=== PATIENT | female | born 1940 | race Caucasian/White ===

== ENCOUNTER → 2017-05-27 | Outpatient (REF) | payer MEDICARE, BC ==
[~2017-05-27] MED LIST: ADVA230A PO; ASPI81TA85 PO; BISO5TAB5 PO; CETI10TA PO; FLUO40CA PO; FLUTISP; FOLI1TAB4 PO; GABA-282 PO; ISOS30TA4 PO; LEVO112T25 PO; METF750T PO; PANT40TA2 PO; PRAL1INJ SUBQ; RAMI10CA PO; RANE1000 PO; SPIR1CAP PO; TYLE650T35 PO; VITA500055 PO
== END ==
LOC: M LAB REF 16:54
PROVIDERS: ATTEND Obstetrics & Gynecology
DX: R15.9 Full incontinence of feces (principal); Z79.899 Other long term (current) drug therapy

== ENCOUNTER 2017-07-16 06:26 | Day surgery (SDC) | payer MEDICARE, BC ==
[2017-07-16] MEDS ORDERED: LR 1,000 ML IV (06:45)
[2017-07-16] MEDS ORDERED: MIDAZOLAM INJ 2 MG/2 ML VIAL (J2250) As Ordered (07:08)
[2017-07-16] MEDS ORDERED: PROPOFOL 200 MG/20 ML VIAL As Ordered ×2 (07:08→08:39)
[2017-07-16] MEDS ORDERED: fentaNYL 100 MCG/2 ML INJECTION (J3010) As Ordered (07:08)
[2017-07-16] MEDS ORDERED: LIDOCAINE 2% INJ 100 MG/5 ML SDV (FOR ANES.) As Ordered (07:10)
[2017-07-16 07:39] LABS: BEDSIDE GLUCOSE 109 MG/DL (83-110)
[2017-07-16] MEDS ORDERED: ONDANSETRON 4MG/2ML VIAL (J2405) As Ordered (07:42)
[2017-07-16] MEDS: LIDOCAINE 1% SDV INJ 30 ML VIAL As Ordered (08:12)
[2017-07-16] MEDS: ceFAZolin 1GM INJ (J0690 PER 500MG) As Ordered (08:13)
== END 2017-07-16 10:47 | disposition home or self-care (01) ==
LOC: M SDC 06:26
DX: R15.9 Full incontinence of feces (principal); N39.3 Stress incontinence (female) (male); I25.10 Atherosclerotic heart disease of native coronary artery without angina pectoris; I25.2 Old myocardial infarction; I10 Essential (primary) hypertension; E11.9 Type 2 diabetes mellitus without complications; E78.4 Other hyperlipidemia; E03.9 Hypothyroidism, unspecified; J45.909 Unspecified asthma, uncomplicated; G47.30 Sleep apnea, unspecified; Z79.899 Other long term (current) drug therapy; Z79.82 Long term (current) use of aspirin; Z79.51 Long term (current) use of inhaled steroids; Z88.2 Allergy status to sulfonamides; Z88.8 Allergy status to other drugs, medicaments and biological substances; K21.9 Gastro-esophageal reflux disease without esophagitis; Z98.61 Coronary angioplasty status
CPT/HCPCS: 64590

== ENCOUNTER 2017-07-23 09:23 | Day surgery (SDC) | payer MEDICARE, BC ==
[~2017-07-23 09:23] MED LIST changes: -ADVA230A PO; -ASPI81TA85 PO; -BISO5TAB5 PO; -CETI10TA PO; -FLUO40CA PO; -FLUTISP; -FOLI1TAB4 PO; -GABA-282 PO; -ISOS30TA4 PO; -LEVO112T25 PO; +LIDOCAINE 2% INJ 100 MG/5 ML SDV (FOR ANES.) As Ordered; -METF750T PO; +MIDAZOLAM INJ 2 MG/2 ML VIAL (J2250) As Ordered; +ONDANSETRON 4MG/2ML VIAL (J2405) As Ordered; -PANT40TA2 PO; -PRAL1INJ SUBQ; +PROPOFOL 200 MG/20 ML VIAL As Ordered; -RAMI10CA PO; -RANE1000 PO; -SPIR1CAP PO; -TYLE650T35 PO; -VITA500055 PO; +fentaNYL 100 MCG/2 ML INJECTION (J3010) As Ordered
[2017-07-23] MEDS ORDERED: LIDOCAINE 1% MDV 20ML VIAL SQ ×2 (09:45)
[2017-07-23 10:09] LABS: BEDSIDE GLUCOSE 106 MG/DL (83-110)
[2017-07-23] MEDS: LR 1,000 ML IV ×2 (10:15)
[2017-07-23] MEDS: LIDOCAINE 1% SDV INJ 30 ML VIAL As Ordered ×2 (11:50)
[2017-07-23] MEDS: ceFAZolin 1GM INJ (J0690 PER 500MG) As Ordered ×2 (11:54)
[2017-07-23] MEDS ORDERED: fentaNYL 100 MCG/2 ML INJECTION (J3010) IV ×2 (13:15)
[2017-07-23] MEDS ORDERED: HYDROmorphone HCL 1 MG/ML SYRINGE (J1170) IV ×2 (13:15)
[2017-07-23] MEDS ORDERED: LR 1,000 ML IV ×4 (13:15)
[2017-07-23] MEDS ORDERED: ONDANSETRON 4MG/2ML VIAL (J2405) IV ×2 (13:15)
== END 2017-07-23 14:15 | disposition home or self-care (01) ==
LOC: M SDC 09:23
DX: R32 Unspecified urinary incontinence (principal); R15.9 Full incontinence of feces; I25.10 Atherosclerotic heart disease of native coronary artery without angina pectoris; I11.9 Hypertensive heart disease without heart failure; I25.2 Old myocardial infarction; E78.5 Hyperlipidemia, unspecified; E11.9 Type 2 diabetes mellitus without complications; E03.9 Hypothyroidism, unspecified; K21.9 Gastro-esophageal reflux disease without esophagitis; J45.909 Unspecified asthma, uncomplicated; G47.30 Sleep apnea, unspecified; Z95.5 Presence of coronary angioplasty implant and graft; L40.9 Psoriasis, unspecified; R80.9 Proteinuria, unspecified; Z88.8 Allergy status to other drugs, medicaments and biological substances; Z88.5 Allergy status to narcotic agent; Z88.2 Allergy status to sulfonamides; Z91.048 Other nonmedicinal substance allergy status; Z79.899 Other long term (current) drug therapy; Z79.82 Long term (current) use of aspirin; Z79.51 Long term (current) use of inhaled steroids; Z79.84 Long term (current) use of oral hypoglycemic drugs
CPT/HCPCS: 64590

== ENCOUNTER → 2017-08-07 | Outpatient (REF) | payer MEDICARE, BC ==
[2017-08-07 17:42] LABS: AMORPHOUS SEDIMENT SMALL (NEGATIVE); APPEARANCE, URINE CLOUDY (CLEAR); BACTERIA, URINE AUTO 1+ (NEGATIVE); BILIRUBIN, URINE AUTO NEGATIVE (NEGATIVE); BLOOD, URINE BLOOD NEGATIVE (NEGATIVE); CALCIUM OXALATE CRYSTALS MODERATE; COLOR, URINE YELLOW (YELLOW); GLUCOSE, URINE (UA) AUTO NEGATIVE (NEGATIVE); KETONE, URINE AUTO NEGATIVE (NEGATIVE); LEUKOCYTE ESTERASE, URINE AUTO 3+ (NEGATIVE); MUCUS, URINE SMALL (NEGATIVE); NITRITE, URINE AUTO NEGATIVE (NEGATIVE); PROTEIN, URINE AUTO NEGATIVE (NEGATIVE); RBC, URINE AUTO 5 /HPF (0-3); SPECIFIC GRAVITY URINE AUTO 1.023 (1.002-1.035); SQUAMOUS EPITHELIAL CELL UR AU 7 /HPF (0-6); TRANSITIONAL EPITHELIAL AUTO 3 /HPF; WBC, URINE AUTO 9 /HPF (0-3)
== END ==
LOC: M LAB REF 16:20
DX: R15.9 Full incontinence of feces (principal)
CPT/HCPCS: 81001

== ENCOUNTER → 2017-10-07 | Outpatient (REF) | payer MEDICARE, BC ==
[2017-10-07 19:16] LABS: APPEARANCE, URINE HAZY (CLEAR); BACTERIA, URINE AUTO NEGATIVE (NEGATIVE); BILIRUBIN, URINE AUTO NEGATIVE (NEGATIVE); BLOOD, URINE BLOOD NEGATIVE (NEGATIVE); COLOR, URINE YELLOW (YELLOW); GLUCOSE, URINE (UA) AUTO NEGATIVE (NEGATIVE); KETONE, URINE AUTO NEGATIVE (NEGATIVE); LEUKOCYTE ESTERASE, URINE AUTO 3+ (NEGATIVE); MUCUS, URINE SMALL (NEGATIVE); NITRITE, URINE AUTO NEGATIVE (NEGATIVE); PROTEIN, URINE AUTO NEGATIVE (NEGATIVE); RBC, URINE AUTO 3 /HPF (0-3); SPECIFIC GRAVITY URINE AUTO 1.015 (1.002-1.035); SQUAMOUS EPITHELIAL CELL UR AU 7 /HPF (0-6); TRANSITIONAL EPITHELIAL AUTO 1 /HPF; UROBILINOGEN, URINE AUTO 0.2 mg/dL (0.0-2.0); WBC, URINE AUTO 5 /HPF (0-3)
== END ==
LOC: M LAB REF 17:14
DX: N39.41 Urge incontinence (principal)
CPT/HCPCS: 81001

== ENCOUNTER 2017-10-29 06:10 | Day surgery (SDC) | payer MEDICARE, BC ==
[2017-10-29] MEDS ORDERED: dexameTHASONE 10 MG/1 ML VIAL PRES.FREE (J1100) ×2 (06:11)
[2017-10-29] MEDS ORDERED: ROPIvacaine 0.5% 30 ML INJECTION (J2795 PER 1MG) ×2 (06:11)
[2017-10-29] MEDS ORDERED: fentaNYL 100 MCG/2 ML INJECTION (J3010) As Ordered ×2 (06:41)
[2017-10-29] MEDS ORDERED: MIDAZOLAM INJ 2 MG/2 ML VIAL (J2250) As Ordered ×4 (06:41→06:46)
[2017-10-29] MEDS ORDERED: fentaNYL 250 MCG/5 ML INJECTION (J3010) As Ordered ×2 (06:45)
[2017-10-29] MEDS ORDERED: PROPOFOL 200 MG/20 ML VIAL As Ordered ×2 (06:45)
[2017-10-29] MEDS ORDERED: ROCURONIUM BROMIDE 50 MG/5 ML VIAL As Ordered ×4 (06:45→09:04)
[2017-10-29] MEDS ORDERED: LIDOCAINE 2% INJ 100 MG/5 ML SDV (FOR ANES.) As Ordered ×2 (06:45)
[2017-10-29] MEDS: LR 1,000 ML IV ×4 (06:53→20:08)
[2017-10-29 07:03] LABS: ANION GAP 7 MEQ/L (8-16); BLOOD UREA NITROGEN 15 MG/DL (7-18); CALCIUM LEVEL 9.4 MG/DL (8.8-10.2); CARBON DIOXIDE LEVEL 28 MEQ/L (21-32); CHLORIDE LEVEL 105 MEQ/L (98-107); CREATININE FOR GFR 0.77 MG/DL (0.55-1.30); GLOMERULAR FILTRATION RATE > 60.0 (>39); GLUCOSE, FASTING 116 MG/DL (70-100); POTASSIUM SERUM 4.2 MEQ/L (3.5-5.1); SODIUM LEVEL 140 MEQ/L (136-145)
[2017-10-29 07:10] LABS: BEDSIDE GLUCOSE 116 MG/DL (83-110)
[2017-10-29] MEDS: MIDAZOLAM INJ 2 MG/2 ML VIAL (J2250) IV ×2 (07:21)
[2017-10-29] MEDS: fentaNYL 100 MCG/2 ML INJECTION (J3010) IV ×2 (07:21)
[2017-10-29] MEDS: EPINEPHrine INJ 1 MG/ML 1ML AMP As Ordered ×2 (08:19)
[2017-10-29] MEDS ORDERED: GLYCOPYRROLATE INJ 0.2 MG/ML 2 ML VIAL As Ordered ×2 (08:42)
[2017-10-29] MEDS ORDERED: NEOSTIGMINE 10 MG/10 ML VIAL (J2710) As Ordered ×2 (08:42)
[2017-10-29] MEDS ORDERED: ONDANSETRON 4MG/2ML VIAL (J2405) As Ordered ×2 (08:43)
[2017-10-29] MEDS ORDERED: KETOROLAC 60 MG/2 ML VIAL (J1885) As Ordered ×2 (08:43)
[2017-10-29] MEDS ORDERED: METOCLOPRAMIDE INJ 10MG/2ML VIAL (J2765) As Ordered ×2 (08:43)
[2017-10-29] MEDS ORDERED: ALBUTEROL SULFATE 2.5 MG/0.5 ML INH NEB SOLN As Ordered ×2 (09:55)
[2017-10-29] MEDS: ALBUTEROL SULFATE 2.5 MG/0.5 ML INH NEB SOLN INH ×2 (10:00)
[2017-10-29] MEDS ORDERED: ONDANSETRON 4MG/2ML VIAL (J2405) IV ×2 (10:15)
[2017-10-29] MEDS ORDERED: NORCO, ANEXSIA 5/325MG TABLET (HYDROcodone/ACETAMINOPHEN) PO ×4 (10:15)
[2017-10-29] MEDS ORDERED: MORPHINE 4 MG/ML 1ML VIAL/SYRINGE (J2270) IV ×2 (10:15)
[2017-10-29] MEDS ORDERED: fentaNYL 100 MCG/2 ML INJECTION (J3010) IV ×2 (10:15)
[2017-10-29] MEDS ORDERED: SLF 3 ML SYR IV ×2 (14:30)
[2017-10-29] MEDS ORDERED: ACETAMINOPHEN TAB 650MG DOSE (2X325MG) PO ×2 (15:30)
[2017-10-29] MEDS: ALBUTEROL 90 MCG/ACT 8GM HFA INHALER INH ×2 (15:43)
[2017-10-29] MEDS: ADVAIR HFA 230/21MCG INHALER INH ×2 (20:39)
[2017-10-29] MEDS: TIOTROPIUM INHALER/CAPSULE (SPIRIVA) INH ×2 (20:40)
[2017-10-29] MEDS: GABAPENTIN 300 MG CAP PO ×2 (22:00)
[2017-10-29] MEDS: RAMIPRIL 5 MG CAP PO ×2 (22:02)
[2017-10-29] MEDS: SLF 3 ML SYR IV ×2 (22:03)
[2017-10-29 22:17] LABS: BEDSIDE GLUCOSE 161 MG/DL (83-110)
[2017-10-29] MEDS: FLUTICASONE PROP 0.05% NASAL SPRAY 16 GM (FLONASE) ×2 (22:39)
[2017-10-29] MEDS: metFORMIN XR 750 MG TAB PO ×2 (22:39)
[2017-10-29] MEDS: RANOLAZINE 500 MG ER TAB PO ×2 (22:39)
[2017-10-30] MEDS: LEVOTHYROXINE 112MCG TABLET (0.112MG) PO ×2 (06:18)
[2017-10-30] MEDS: SLF 3 ML SYR IV ×2 (06:19)
[2017-10-30] MEDS: ACETAMINOPHEN 500 MG TAB PO ×2 (06:50)
[2017-10-30] MEDS: ADVAIR HFA 230/21MCG INHALER INH ×2 (07:27)
[2017-10-30] MEDS: RANOLAZINE 500 MG ER TAB PO ×2 (09:08)
[2017-10-30] MEDS: CETIRIZINE (ZyrTEC) 10 MG TAB PO ×2 (09:09)
[2017-10-30] MEDS: FLUoxetine 20 MG CAP PO ×2 (09:10)
[2017-10-30] MEDS: GABAPENTIN 300 MG CAP PO ×2 (09:11)
[2017-10-30] MEDS: PANTOPRAZOLE 40MG TAB (PROTONIX) PO ×2 (09:11)
[2017-10-30] MEDS: BISOPROLOL FUMARATE 5 MG TAB PO ×2 (09:11)
[2017-10-30] MEDS: metFORMIN XR 750 MG TAB PO ×2 (10:41)
== END 2017-10-30 14:00 | disposition home or self-care (01) ==
LOC: M SDC 06:10 → M MS5PR 14:15
DX: M75.111 Incomplete rotator cuff tear or rupture of right shoulder, not specified as traumatic (principal); M75.21 Bicipital tendinitis, right shoulder; I25.10 Atherosclerotic heart disease of native coronary artery without angina pectoris; I25.2 Old myocardial infarction; I11.9 Hypertensive heart disease without heart failure; E78.00 Pure hypercholesterolemia, unspecified; R60.0 Localized edema; E11.9 Type 2 diabetes mellitus without complications; E03.9 Hypothyroidism, unspecified; K21.9 Gastro-esophageal reflux disease without esophagitis; R23.3 Spontaneous ecchymoses; M12.9 Arthropathy, unspecified; M54.9 Dorsalgia, unspecified; F32.9 Major depressive disorder, single episode, unspecified; H91.92 Unspecified hearing loss, left ear; J45.909 Unspecified asthma, uncomplicated; R06.83 Snoring; G47.33 Obstructive sleep apnea (adult) (pediatric); R32 Unspecified urinary incontinence; E66.9 Obesity, unspecified; Z68.42 Body mass index [BMI] 45.0-49.9, adult; Z88.5 Allergy status to narcotic agent; Z88.6 Allergy status to analgesic agent; Z88.8 Allergy status to other drugs, medicaments and biological substances; Z79.899 Other long term (current) drug therapy; Z79.82 Long term (current) use of aspirin; Z78.0 Asymptomatic menopausal state; Z87.891 Personal history of nicotine dependence; Z95.5 Presence of coronary angioplasty implant and graft; Z87.440 Personal history of urinary (tract) infections; Z86.2 Personal history of diseases of the blood and blood-forming organs and certain disorders involving the immune mechanism
CPT/HCPCS: 29827

== ENCOUNTER → 2017-11-20 | Outpatient (REF) | payer MEDICARE, BC ==
[2017-11-20 19:14] LABS: APPEARANCE, URINE HAZY (CLEAR); BACTERIA, URINE AUTO NEGATIVE (NEGATIVE); BILIRUBIN, URINE AUTO NEGATIVE (NEGATIVE); BLOOD, URINE BLOOD NEGATIVE (NEGATIVE); COLOR, URINE AMBER (YELLOW); GLUCOSE, URINE (UA) AUTO NEGATIVE (NEGATIVE); KETONE, URINE AUTO NEGATIVE (NEGATIVE); LEUKOCYTE ESTERASE, URINE AUTO 1+ (NEGATIVE); MUCUS, URINE SMALL (NEGATIVE); NITRITE, URINE AUTO NEGATIVE (NEGATIVE); PROTEIN, URINE AUTO NEGATIVE (NEGATIVE); RBC, URINE AUTO 3 /HPF (0-3); SPECIFIC GRAVITY URINE AUTO 1.021 (1.002-1.035); SQUAMOUS EPITHELIAL CELL UR AU 1 /HPF (0-6); UROBILINOGEN, URINE AUTO 0.2 mg/dL (0.0-2.0); WBC, URINE AUTO 1 /HPF (0-3)
== END ==
LOC: M LAB REF 17:27
DX: Z09 Encounter for follow-up examination after completed treatment for conditions other than malignant neoplasm (principal); Z87.440 Personal history of urinary (tract) infections; Z79.899 Other long term (current) drug therapy
CPT/HCPCS: 81001

== ENCOUNTER → 2018-04-20 | Outpatient (CLI) | payer MEDICARE, BC ==
[2018-04-20 10:09] LABS: INR 0.99; PROTHROMBIN TIME 13.2 SECONDS (12.1-14.4)
[2018-04-20 10:11] LABS: HEMATOCRIT 35.4 % (36.0-47.0); HEMOGLOBIN 11.4 g/dl (12.0-15.5); MEAN CORPUSCULAR HEMOGLOBIN 30.6 pg (27.0-33.0); MEAN CORPUSCULAR HGB CONC 32.2 g/dl (32.0-36.5); MEAN CORPUSCULAR VOLUME 95.2 fl (80.0-96.0); PLATELET COUNT, AUTOMATED 273 10^3/uL (150-450); RED BLOOD COUNT 3.72 10^6/uL (4.00-5.40); RED CELL DISTRIBUTION WIDTH 15.8 % (11.5-14.5); WHITE BLOOD COUNT 7.3 10^3/uL (4.0-10.0)
[2018-04-20 10:27] LABS: ALBUMIN 3.6 GM/DL (3.2-5.2); ALBUMIN/GLOBULIN RATIO 1.03 (1.00-1.93); ALKALINE PHOSPHATASE 62 U/L (45-117); ALT/SGPT 21 U/L (12-78); ANION GAP 3 MEQ/L (8-16); AST/SGOT 25 U/L (7-37); BILIRUBIN,TOTAL 0.5 MG/DL (0.2-1.0); BLOOD UREA NITROGEN 17 MG/DL (7-18); CALCIUM LEVEL 9.4 MG/DL (8.8-10.2); CARBON DIOXIDE LEVEL 32 MEQ/L (21-32); CHLORIDE LEVEL 106 MEQ/L (98-107); CREATININE FOR GFR 0.74 MG/DL (0.55-1.30); GLOMERULAR FILTRATION RATE > 60.0 (>39); GLUCOSE, FASTING 107 MG/DL (70-100); POTASSIUM SERUM 4.7 MEQ/L (3.5-5.1); SODIUM LEVEL 141 MEQ/L (136-145); TOTAL PROTEIN 7.1 GM/DL (6.4-8.2)
[2018-04-20 10:43] LABS: ERYTHROCYTE SEDIMENTATION RATE 48 mm/hr (0-30)
== END ==
LOC: M LAB 09:03
DX: Z01.818 Encounter for other preprocedural examination (principal); M17.12 Unilateral primary osteoarthritis, left knee
CPT/HCPCS: 71046

== ENCOUNTER 2018-05-18 08:20 | Inpatient (IN) | payer MEDICARE, BC ==
[2018-05-18] MEDS: LR 1,000 ML IV ×3 (09:00→13:15)
[2018-05-18 09:06] LABS: BEDSIDE GLUCOSE 118 MG/DL (83-110)
[2018-05-18] MEDS ORDERED: fentaNYL 100 MCG/2 ML INJECTION (J3010) As Ordered ×2 (09:15→09:43)
[2018-05-18] MEDS ORDERED: MIDAZOLAM INJ 2 MG/2 ML VIAL (J2250) As Ordered ×2 (09:15→09:43)
[2018-05-18] MEDS: fentaNYL 100 MCG/2 ML INJECTION (J3010) IV (09:34)
[2018-05-18] MEDS: MIDAZOLAM INJ 2 MG/2 ML VIAL (J2250) IV (09:34)
[2018-05-18] MEDS ORDERED: dexameTHASONE 4 MG/ML 1ML VIAL (J1100) As Ordered (09:42)
[2018-05-18] MEDS ORDERED: BUPIVACAINE/DEXTROSE 0.75% 2 ML AMP As Ordered (09:42)
[2018-05-18] MEDS ORDERED: PROPOFOL 200 MG/20 ML VIAL As Ordered ×2 (09:42)
[2018-05-18] MEDS ORDERED: ONDANSETRON 4MG/2ML VIAL (J2405) As Ordered (09:42)
[2018-05-18] MEDS ORDERED: ePHEDrine SULFATE 25 MG/5 ML(5MG/ML) SYRINGE As Ordered ×2 (11:06→11:37)
[2018-05-18] MEDS: BUPIVACAINE HCL 0.25% 30 ML VIAL As Ordered (11:18)
[2018-05-18] MEDS: TRANEXAMIC ACID 100 MG/ML 10ML VIAL As Ordered (11:20)
[2018-05-18] MEDS: EPINEPHrine INJ 1 MG/ML 1ML AMP As Ordered (11:20)
[2018-05-18] MEDS: BUPIVACAINE LIPOSOME/PF 1.3% 20ML VIAL (13.3MG/ML)(EXPAREL)(C9290 PER1MG) As Ordered (11:21)
[2018-05-18] MEDS: ceFAZolin 1GM INJ (J0690 PER 500MG) As Ordered (11:21)
[2018-05-18] MEDS ORDERED: EPINEPHrine INJ 1 MG/ML 1ML AMP (11:52)
[2018-05-18] MEDS ORDERED: ROPIvacaine 0.5% 30 ML INJECTION (J2795 PER 1MG) (11:52)
[2018-05-18] MEDS ORDERED: LIDOCAINE 1% MDV 20ML VIAL (11:52)
[2018-05-18] MEDS ORDERED: MORPHINE 1MG/ML IN 0.9% NACL 100ML IV BAG As Ordered (12:56)
[2018-05-18] MEDS ORDERED: EPIDURAL/PCA KEYS XX (13:00)
[2018-05-18] MEDS ORDERED: MORPHINE 1MG/ML IN 0.9% NACL 100ML IV BAG IV (13:00)
[2018-05-18] MEDS ORDERED: NALOXONE INJ 0.4 MG/1 ML VIAL (J2310) IV (13:00)
[2018-05-18] MEDS ORDERED: NALBUPHINE HCL 10 MG/ML AMP (J2300) IV (13:00)
[2018-05-18] MEDS ORDERED: diphenhydrAMINE INJ 50MG/ML VIAL (J1200) IV (13:00)
[2018-05-18] MEDS ORDERED: METOCLOPRAMIDE INJ 10MG/2ML VIAL (J2765) IV (13:15)
[2018-05-18] MEDS ORDERED: FLEET ENEMA PR (13:15)
[2018-05-18] MEDS ORDERED: PERCOCET 5MG/325MG TAB PO (13:15)
[2018-05-18] MEDS ORDERED: ONDANSETRON 4MG/2ML VIAL (J2405) IV (13:15)
[2018-05-18] MEDS ORDERED: fentaNYL 100 MCG/2 ML INJECTION (J3010) IV (13:15)
[2018-05-18] MEDS ORDERED: ALBUTEROL 90 MCG/ACT 8GM HFA INHALER INH (18:15)
[2018-05-18] MEDS ORDERED: BENZONATATE 100 MG CAP PO (18:15)
[2018-05-18] MEDS: ADVAIR HFA 230/21MCG INHALER INH (19:53)
[2018-05-18] MEDS: RANOLAZINE 500 MG ER TAB PO (20:48)
[2018-05-18] MEDS: metFORMIN XR 750 MG TAB PO (20:48)
[2018-05-18] MEDS: GABAPENTIN 300 MG CAP PO (20:48)
[2018-05-18 21:02] LABS: BEDSIDE GLUCOSE 142 MG/DL (83-110)
[2018-05-18 21:02] LABS: BEDSIDE GLUCOSE 111 MG/DL (83-110)
[2018-05-18] MEDS: ACETAMINOPHEN TAB 650MG DOSE (2X325MG) PO (22:33)
[2018-05-18] MEDS: ONDANSETRON 4MG/2ML VIAL (J2405) IV (23:34)
[2018-05-19] MEDS: LR 1,000 ML IV (01:43)
[2018-05-19] MEDS: LEVOTHYROXINE 112MCG TABLET (0.112MG) PO (05:06)
[2018-05-19] MEDS ORDERED: PERCOCET 5MG/325MG TAB PO ×2 (05:45)
[2018-05-19] MEDS ORDERED: ONDANSETRON 4 MG TAB (S0181) PO (05:45)
[2018-05-19 06:32] LABS: HEMATOCRIT 33.1 % (36.0-47.0); HEMOGLOBIN 10.5 g/dl (12.0-15.5); MEAN CORPUSCULAR HEMOGLOBIN 30.3 pg (27.0-33.0); MEAN CORPUSCULAR HGB CONC 31.7 g/dl (32.0-36.5); MEAN CORPUSCULAR VOLUME 95.7 fl (80.0-96.0); PLATELET COUNT, AUTOMATED 282 10^3/uL (150-450); RED BLOOD COUNT 3.46 10^6/uL (4.00-5.40); RED CELL DISTRIBUTION WIDTH 16.8 % (11.5-14.5); WHITE BLOOD COUNT 11.3 10^3/uL (4.0-10.0)
[2018-05-19 06:40] LABS: INR 1.13; PROTHROMBIN TIME 14.7 SECONDS (12.1-14.4)
[2018-05-19] MEDS ORDERED: traMADol 50 MG TAB PO (08:00)
[2018-05-19] MEDS: ADVAIR HFA 230/21MCG INHALER INH ×2 (08:06→20:47)
[2018-05-19] MEDS: TIOTROPIUM INHALER/CAPSULE (SPIRIVA) INH (08:07)
[2018-05-19] MEDS: FLUoxetine 20 MG CAP PO (08:24)
[2018-05-19] MEDS: BISOPROLOL FUMARATE 5 MG TAB PO (08:27)
[2018-05-19] MEDS: MOM 30ML SUSPENSION UDC PO (08:27)
[2018-05-19] MEDS: RANOLAZINE 500 MG ER TAB PO ×2 (08:28→20:53)
[2018-05-19] MEDS: metFORMIN XR 750 MG TAB PO (08:28)
[2018-05-19] MEDS: MIRALAX *UNIT DOSE* 17GM PACKET PO (08:28)
[2018-05-19] MEDS: PANTOPRAZOLE 40MG TAB (PROTONIX) PO (08:28)
[2018-05-19] MEDS: CETIRIZINE (ZyrTEC) 10 MG TAB PO (08:28)
[2018-05-19] MEDS: SENOKOT S TAB PO ×2 (08:28→20:53)
[2018-05-19] MEDS: GABAPENTIN 300 MG CAP PO ×2 (08:28→20:53)
[2018-05-19] MEDS: ASPIRIN 81 MG ENTERIC TAB PO (08:29)
[2018-05-19] MEDS: ISOSORBIDE MON. (IMDUR) 30 MG XR TAB PO (08:29)
[2018-05-19] MEDS: RAMIPRIL 5 MG CAP PO (08:29)
[2018-05-19] MEDS: FLUTICASONE PROP 0.05% NASAL SPRAY 16 GM (FLONASE) (08:29)
[2018-05-19] MEDS ORDERED: NALOXONE INJ 0.4 MG/1 ML VIAL (J2310) As Ordered (09:45)
[2018-05-19] MEDS: NALOXONE INJ 0.4 MG/1 ML VIAL (J2310) IV ×2 (09:47→13:40)
[2018-05-19] MEDS: ACETAMINOPHEN 500 MG TAB PO ×2 (10:10→22:12)
[2018-05-19 11:42] LABS: BEDSIDE GLUCOSE 144 MG/DL (83-110)
[2018-05-19 13:28] LABS: BEDSIDE GLUCOSE 127 MG/DL (83-110)
[2018-05-19] MEDS: NS 1,000 ML IV ×3 (13:41→18:17)
[2018-05-19 14:15] LABS: HEMATOCRIT 29.5 % (36.0-47.0); HEMOGLOBIN 9.5 g/dl (12.0-15.5); MEAN CORPUSCULAR HEMOGLOBIN 30.7 pg (27.0-33.0); MEAN CORPUSCULAR HGB CONC 32.2 g/dl (32.0-36.5); MEAN CORPUSCULAR VOLUME 95.5 fl (80.0-96.0); PLATELET COUNT, AUTOMATED 258 10^3/uL (150-450); RED BLOOD COUNT 3.09 10^6/uL (4.00-5.40); RED CELL DISTRIBUTION WIDTH 16.5 % (11.5-14.5); WHITE BLOOD COUNT 11.7 10^3/uL (4.0-10.0)
[2018-05-19] MEDS: SODIUM CHLORIDE 0.9% 1000ML IV (15:50)
[2018-05-19 16:00] LABS: ANION GAP 7 MEQ/L (8-16); BLOOD UREA NITROGEN 17 MG/DL (7-18); CALCIUM LEVEL 8.7 MG/DL (8.8-10.2); CARBON DIOXIDE LEVEL 27 MEQ/L (21-32); CHLORIDE LEVEL 101 MEQ/L (98-107); CREATININE FOR GFR 1.32 MG/DL (0.55-1.30); GLOMERULAR FILTRATION RATE 41.5 (>39); GLUCOSE, FASTING 122 MG/DL (70-100); POTASSIUM SERUM 4.6 MEQ/L (3.5-5.1); SODIUM LEVEL 135 MEQ/L (136-145)
[2018-05-19 16:03] LABS: CPK CREATINE PHOSPHOKINASE 291 U/L (26-192); MB/CK RELATIVE INDEX 0.82 (< OR =4); TROPONIN I < 0.02 NG/ML (< 0.10)
[2018-05-19 16:04] LABS: LACTIC ACID SEPSIS PROTOCOL 3.2 MMOL/L (0.4-2.0)
[2018-05-19] MEDS ORDERED: DEXTROSE 50% 50 ML SYRINGE IV (17:00)
[2018-05-19] MEDS ORDERED: GLUCAGON FOR INJ 1 MG VIAL (J1610) SC (17:00)
[2018-05-19] MEDS ORDERED: GLUCOSE 4 GM CHEW TABLET PO (17:00)
[2018-05-19 17:21] LABS: BEDSIDE GLUCOSE 138 MG/DL (83-110)
[2018-05-19] MEDS ORDERED: HumaLOG INSULIN (NovoLOG) PER UNIT SC (17:30)
[2018-05-19] MEDS: HumaLOG INSULIN (NovoLOG) PER UNIT SC (18:16)
[2018-05-19] MEDS: IPRATROPIUM 0.5MG/ALBUTEROL 2.5MG INH SOL UD 3ML (DUONEB)(J7620) NEB (20:00)
[2018-05-19 20:07] LABS: LACTIC ACID SEPSIS PROTOCOL 1.6 MMOL/L (0.4-2.0)
[2018-05-19] MEDS: RIVAROXABAN 10 MG TAB (XARELTO) PO (22:12)
[2018-05-20 00:26] LABS: ANION GAP 5 MEQ/L (8-16); BLOOD UREA NITROGEN 17 MG/DL (7-18); CALCIUM LEVEL 8.1 MG/DL (8.8-10.2); CARBON DIOXIDE LEVEL 28 MEQ/L (21-32); CHLORIDE LEVEL 105 MEQ/L (98-107); CREATININE FOR GFR 1.02 MG/DL (0.55-1.30); GLOMERULAR FILTRATION RATE 55.9 (>39); GLUCOSE, FASTING 137 MG/DL (70-100); POTASSIUM SERUM 4.5 MEQ/L (3.5-5.1); SODIUM LEVEL 138 MEQ/L (136-145)
[2018-05-20] MEDS: LEVOTHYROXINE 112MCG TABLET (0.112MG) PO (05:33)
[2018-05-20 06:08] LABS: HEMOGLOBIN 9.5 g/dl (12.0-15.5); MEAN CORPUSCULAR HEMOGLOBIN 30.4 pg (27.0-33.0); MEAN CORPUSCULAR HGB CONC 31.7 g/dl (32.0-36.5); MEAN CORPUSCULAR VOLUME 95.8 fl (80.0-96.0); PLATELET COUNT, AUTOMATED 215 10^3/uL (150-450); RED BLOOD COUNT 3.13 10^6/uL (4.00-5.40); RED CELL DISTRIBUTION WIDTH 16.4 % (11.5-14.5); WHITE BLOOD COUNT 9.7 10^3/uL (4.0-10.0)
[2018-05-20 06:41] LABS: ANION GAP 7 MEQ/L (8-16); BLOOD UREA NITROGEN 15 MG/DL (7-18); CALCIUM LEVEL 8.5 MG/DL (8.8-10.2); CARBON DIOXIDE LEVEL 26 MEQ/L (21-32); CHLORIDE LEVEL 105 MEQ/L (98-107); CREATININE FOR GFR 0.81 MG/DL (0.55-1.30); GLOMERULAR FILTRATION RATE > 60.0 (>39); GLUCOSE, FASTING 129 MG/DL (70-100); POTASSIUM SERUM 4.4 MEQ/L (3.5-5.1); SODIUM LEVEL 138 MEQ/L (136-145)
[2018-05-20] MEDS: TIOTROPIUM INHALER/CAPSULE (SPIRIVA) INH (07:20)
[2018-05-20] MEDS: ADVAIR HFA 230/21MCG INHALER INH ×2 (07:20→19:39)
[2018-05-20] MEDS: IPRATROPIUM 0.5MG/ALBUTEROL 2.5MG INH SOL UD 3ML (DUONEB)(J7620) NEB ×4 (08:00→15:40)
[2018-05-20] MEDS: MOM 30ML SUSPENSION UDC PO (08:16)
[2018-05-20] MEDS: MIRALAX *UNIT DOSE* 17GM PACKET PO (08:16)
[2018-05-20] MEDS: HumaLOG INSULIN (NovoLOG) PER UNIT SC ×3 (08:17→17:46)
[2018-05-20] MEDS: RANOLAZINE 500 MG ER TAB PO ×2 (08:17→20:51)
[2018-05-20] MEDS: PANTOPRAZOLE 40MG TAB (PROTONIX) PO (08:17)
[2018-05-20] MEDS: CETIRIZINE (ZyrTEC) 10 MG TAB PO (08:18)
[2018-05-20] MEDS: GABAPENTIN 300 MG CAP PO ×2 (08:18→20:51)
[2018-05-20] MEDS: FLUoxetine 20 MG CAP PO (08:18)
[2018-05-20] MEDS: FLUTICASONE PROP 0.05% NASAL SPRAY 16 GM (FLONASE) (08:20)
[2018-05-20] MEDS: SENOKOT S TAB PO ×2 (08:20→20:51)
[2018-05-20] MEDS: BISOPROLOL FUMARATE 5 MG TAB PO (08:20)
[2018-05-20] MEDS: ASPIRIN 81 MG ENTERIC TAB PO (08:20)
[2018-05-20] MEDS: ACETAMINOPHEN 500 MG TAB PO ×2 (08:20→17:46)
[2018-05-20 12:00] LABS: BEDSIDE GLUCOSE 139 MG/DL (83-110)
[2018-05-20 17:28] LABS: BEDSIDE GLUCOSE 133 MG/DL (83-110)
[2018-05-20] MEDS: RIVAROXABAN 10 MG TAB (XARELTO) PO (17:46)
[2018-05-21] MEDS: ACETAMINOPHEN 500 MG TAB PO (04:02)
[2018-05-21 04:06] LABS: BEDSIDE GLUCOSE 153 MG/DL (83-110)
[2018-05-21] MEDS: LEVOTHYROXINE 112MCG TABLET (0.112MG) PO (05:37)
[2018-05-21 05:54] LABS: HEMATOCRIT 29.9 % (36.0-47.0); HEMOGLOBIN 9.4 g/dl (12.0-15.5); MEAN CORPUSCULAR HEMOGLOBIN 29.9 pg (27.0-33.0); MEAN CORPUSCULAR HGB CONC 31.4 g/dl (32.0-36.5); MEAN CORPUSCULAR VOLUME 95.2 fl (80.0-96.0); PLATELET COUNT, AUTOMATED 237 10^3/uL (150-450); RED BLOOD COUNT 3.14 10^6/uL (4.00-5.40); RED CELL DISTRIBUTION WIDTH 16.4 % (11.5-14.5); WHITE BLOOD COUNT 8.9 10^3/uL (4.0-10.0)
[2018-05-21 06:19] LABS: ANION GAP 5 MEQ/L (8-16); BLOOD UREA NITROGEN 13 MG/DL (7-18); CALCIUM LEVEL 8.7 MG/DL (8.8-10.2); CARBON DIOXIDE LEVEL 29 MEQ/L (21-32); CHLORIDE LEVEL 103 MEQ/L (98-107); CREATININE FOR GFR 0.73 MG/DL (0.55-1.30); GLOMERULAR FILTRATION RATE > 60.0 (>39); GLUCOSE, FASTING 123 MG/DL (70-100); POTASSIUM SERUM 4.8 MEQ/L (3.5-5.1); SODIUM LEVEL 137 MEQ/L (136-145)
[2018-05-21] MEDS: ADVAIR HFA 230/21MCG INHALER INH (07:47)
[2018-05-21] MEDS: TIOTROPIUM INHALER/CAPSULE (SPIRIVA) INH (07:47)
[2018-05-21] MEDS: MOM 30ML SUSPENSION UDC PO (08:51)
[2018-05-21] MEDS: HumaLOG INSULIN (NovoLOG) PER UNIT SC (08:51)
[2018-05-21] MEDS: MIRALAX *UNIT DOSE* 17GM PACKET PO (08:51)
[2018-05-21] MEDS: RANOLAZINE 500 MG ER TAB PO (08:52)
[2018-05-21] MEDS: CETIRIZINE (ZyrTEC) 10 MG TAB PO (08:52)
[2018-05-21] MEDS: FLUoxetine 20 MG CAP PO (08:52)
[2018-05-21] MEDS: SENOKOT S TAB PO (08:52)
[2018-05-21] MEDS: BISOPROLOL FUMARATE 10 MG TAB PO (08:52)
[2018-05-21] MEDS: PANTOPRAZOLE 40MG TAB (PROTONIX) PO (08:52)
[2018-05-21] MEDS: ASPIRIN 81 MG ENTERIC TAB PO (08:53)
[2018-05-21] MEDS: GABAPENTIN 300 MG CAP PO (08:53)
[2018-05-21] MEDS: FLUTICASONE PROP 0.05% NASAL SPRAY 16 GM (FLONASE) (08:53)
[2018-05-22 06:59] LABS: BEDSIDE GLUCOSE 155 MG/DL (83-110)
[2018-05-22 06:59] LABS: BEDSIDE GLUCOSE 145 MG/DL (83-110)
== END 2018-05-21 11:27 | DRG 470 ==
LOC: M OR 08:20 → M MS5PR 13:40 → M PCU 05-19 16:45
PROVIDERS: Orthopaedic Surgery
PROC: 0SRD0J9 Replacement of Left Knee Joint with Synthetic Substitute, Cemented, Open Approach (ICD-10-PCS; principal; 2018-05-18 10:18)
DX: M17.12 Unilateral primary osteoarthritis, left knee (principal); E11.40 Type 2 diabetes mellitus with diabetic neuropathy, unspecified; I10 Essential (primary) hypertension; E78.00 Pure hypercholesterolemia, unspecified; J45.909 Unspecified asthma, uncomplicated; K21.9 Gastro-esophageal reflux disease without esophagitis; R09.02 Hypoxemia; I25.10 Atherosclerotic heart disease of native coronary artery without angina pectoris; R26.89 Other abnormalities of gait and mobility; G47.33 Obstructive sleep apnea (adult) (pediatric); E03.9 Hypothyroidism, unspecified; I25.2 Old myocardial infarction; Z95.5 Presence of coronary angioplasty implant and graft; Z90.49 Acquired absence of other specified parts of digestive tract; Z79.82 Long term (current) use of aspirin; Z79.899 Other long term (current) drug therapy; Z79.84 Long term (current) use of oral hypoglycemic drugs; R33.9 Retention of urine, unspecified; I95.9 Hypotension, unspecified; J44.9 Chronic obstructive pulmonary disease, unspecified; F39 Unspecified mood [affective] disorder; T40.605A Adverse effect of unspecified narcotics, initial encounter; T46.5X5A Adverse effect of other antihypertensive drugs, initial encounter

== ENCOUNTER 2018-05-21 11:30 | Inpatient (IN) | payer MEDICARE, BC ==
[2018-05-21] MEDS ORDERED: ACETAMINOPHEN TAB 650MG DOSE (2X325MG) PO (13:45)
[2018-05-21] MEDS ORDERED: PERCOCET 5MG/325MG TAB PO (13:45)
[2018-05-21] MEDS ORDERED: DEXTROSE 50% 50 ML SYRINGE IV (14:00)
[2018-05-21] MEDS ORDERED: GLUCAGON FOR INJ 1 MG VIAL (J1610) SC (14:00)
[2018-05-21] MEDS ORDERED: GLUCOSE 4 GM CHEW TABLET PO (14:00)
[2018-05-21] MEDS ORDERED: NITROGLYCERIN 0.4 MG SUBL TABLET SL (14:00)
[2018-05-21] MEDS ORDERED: PILL CRUSHER/CUTTER 1 EACH XX (15:15)
[2018-05-21] MEDS ORDERED: FLEET ENEMA PR (16:00)
[2018-05-21] MEDS ORDERED: BENZONATATE 100 MG CAP PO (16:00)
[2018-05-21] MEDS: ALBUTEROL SULFATE 2.5 MG/0.5 ML INH NEB SOLN NEB (16:00)
[2018-05-21] MEDS: metFORMIN XR 750 MG TAB PO (17:59)
[2018-05-21] MEDS: HumaLOG INSULIN (NovoLOG) PER UNIT SC (17:59)
[2018-05-21] MEDS ORDERED: GABAPENTIN 300 MG CAP PO (21:00)
[2018-05-21] MEDS: DOCUSATE SODIUM 100 MG CAP PO (21:16)
[2018-05-21] MEDS: RANOLAZINE 500 MG ER TAB PO (21:16)
[2018-05-21] MEDS: RIVAROXABAN 10 MG TAB (XARELTO) PO (21:16)
[2018-05-21] MEDS: SENNA 8.6 MG TAB (SENOKOT) PO (21:16)
[2018-05-21] MEDS: ACETAMINOPHEN 500 MG TAB PO (21:17)
[2018-05-21] MEDS: ADVAIR HFA 230/21MCG INHALER INH (22:15)
[2018-05-22] MEDS: ACETAMINOPHEN 500 MG TAB PO ×3 (03:53→21:02)
[2018-05-22] MEDS: LEVOTHYROXINE 112MCG TABLET (0.112MG) PO (06:25)
[2018-05-22 06:35] LABS: BASO # 0.1 10^3/uL (0.0-0.2); BASO % 0.7 % (0.0-1.0); EOS # 0.2 10^3/uL (0.0-0.50); HEMATOCRIT 29.3 % (36.0-47.0); HEMOGLOBIN 9.3 g/dl (12.0-15.5); IMMATURE GRANULOCYTE % 0.5 % (0-3.0); LYMPH # 1.7 10^3/uL (1.5-4.5); LYMPH % 22.6 % (24.0-44.0); MEAN CORPUSCULAR HEMOGLOBIN 29.8 pg (27.0-33.0); MEAN CORPUSCULAR HGB CONC 31.7 g/dl (32.0-36.5); MEAN CORPUSCULAR VOLUME 93.9 fl (80.0-96.0); MONO # 0.9 10^3/uL (0.0-0.8); MONO % 11.4 % (0.0-5.0); NEUTROPHILS # 4.7 10^3/uL (1.8-7.7); NEUTROPHILS % 61.8 % (36.0-66.0); PLATELET COUNT, AUTOMATED 270 10^3/uL (150-450); RED BLOOD COUNT 3.12 10^6/uL (4.00-5.40); RED CELL DISTRIBUTION WIDTH 16.4 % (11.5-14.5); WHITE BLOOD COUNT 7.6 10^3/uL (4.0-10.0)
[2018-05-22 06:49] LABS: ALBUMIN 2.6 GM/DL (3.2-5.2); ALKALINE PHOSPHATASE 53 U/L (45-117); ALT/SGPT 15 U/L (12-78); ANION GAP 5 MEQ/L (8-16); AST/SGOT 21 U/L (7-37); BILIRUBIN,TOTAL 0.5 MG/DL (0.2-1.0); BLOOD UREA NITROGEN 16 MG/DL (7-18); CARBON DIOXIDE LEVEL 31 MEQ/L (21-32); CHLORIDE LEVEL 101 MEQ/L (98-107); CREATININE FOR GFR 0.69 MG/DL (0.55-1.30); GLOMERULAR FILTRATION RATE > 60.0 (>39); GLUCOSE, FASTING 132 MG/DL (70-100); POTASSIUM SERUM 4.6 MEQ/L (3.5-5.1); SODIUM LEVEL 137 MEQ/L (136-145); TOTAL PROTEIN 6.9 GM/DL (6.4-8.2)
[2018-05-22 06:59] LABS: BEDSIDE GLUCOSE 122 MG/DL (83-110)
[2018-05-22 06:59] LABS: BEDSIDE GLUCOSE 137 MG/DL (83-110)
[2018-05-22] MEDS: ADVAIR HFA 230/21MCG INHALER INH ×2 (07:18→20:15)
[2018-05-22] MEDS: TIOTROPIUM INHALER/CAPSULE (SPIRIVA) INH (07:19)
[2018-05-22] MEDS: ALBUTEROL SULFATE 2.5 MG/0.5 ML INH NEB SOLN NEB ×3 (08:00→15:01)
[2018-05-22] MEDS: HumaLOG INSULIN (NovoLOG) PER UNIT SC ×3 (08:57→17:33)
[2018-05-22] MEDS: ASPIRIN 81 MG ENTERIC TAB PO (08:57)
[2018-05-22] MEDS: metFORMIN XR 750 MG TAB PO ×2 (08:58→17:32)
[2018-05-22] MEDS: CETIRIZINE (ZyrTEC) 10 MG TAB PO (08:58)
[2018-05-22] MEDS: FLUTICASONE PROP 0.05% NASAL SPRAY 16 GM (FLONASE) NARES (08:58)
[2018-05-22] MEDS: GABAPENTIN 300 MG CAP PO (09:00)
[2018-05-22] MEDS ORDERED: BISOPROLOL FUMARATE 5 MG TAB PO (09:00)
[2018-05-22] MEDS: RANOLAZINE 500 MG ER TAB PO ×2 (09:01→21:02)
[2018-05-22] MEDS: FLUoxetine 20 MG CAP PO (09:01)
[2018-05-22] MEDS: BISOPROLOL FUMARATE 5 MG TAB PO (09:01)
[2018-05-22] MEDS: VITAMIN D 1,000 INTERNATIONAL UNITS TABLET PO (09:02)
[2018-05-22] MEDS: DOCUSATE SODIUM 100 MG CAP PO ×2 (09:02→21:03)
[2018-05-22] MEDS: PANTOPRAZOLE 40MG TAB (PROTONIX) PO (09:02)
[2018-05-22] MEDS: MOM 30ML SUSPENSION UDC PO (09:17)
[2018-05-22 13:55] LABS: BEDSIDE GLUCOSE 176 MG/DL (83-110)
[2018-05-22 16:37] LABS: BEDSIDE GLUCOSE 113 MG/DL (83-110)
[2018-05-22] MEDS: RIVAROXABAN 10 MG TAB (XARELTO) PO (17:32)
[2018-05-22 20:55] LABS: BEDSIDE GLUCOSE 137 MG/DL (83-110)
[2018-05-22] MEDS: SENNA 8.6 MG TAB (SENOKOT) PO (21:02)
[2018-05-23 05:17] LABS: BEDSIDE GLUCOSE 118 MG/DL (83-110)
[2018-05-23] MEDS: LEVOTHYROXINE 112MCG TABLET (0.112MG) PO (06:01)
[2018-05-23] MEDS: HumaLOG INSULIN (NovoLOG) PER UNIT SC ×3 (07:52→17:02)
[2018-05-23] MEDS: ASPIRIN 81 MG ENTERIC TAB PO (07:52)
[2018-05-23] MEDS: PANTOPRAZOLE 40MG TAB (PROTONIX) PO (07:53)
[2018-05-23] MEDS: VITAMIN D 1,000 INTERNATIONAL UNITS TABLET PO (07:53)
[2018-05-23] MEDS: DOCUSATE SODIUM 100 MG CAP PO ×2 (07:53→20:13)
[2018-05-23] MEDS: metFORMIN XR 750 MG TAB PO ×2 (07:53→17:02)
[2018-05-23] MEDS: FLUoxetine 20 MG CAP PO (07:53)
[2018-05-23] MEDS: GABAPENTIN 300 MG CAP PO (07:53)
[2018-05-23] MEDS: BISOPROLOL FUMARATE 5 MG TAB PO (07:54)
[2018-05-23] MEDS: CETIRIZINE (ZyrTEC) 10 MG TAB PO (07:54)
[2018-05-23] MEDS: RANOLAZINE 500 MG ER TAB PO ×2 (07:55→20:14)
[2018-05-23] MEDS: ALBUTEROL SULFATE 2.5 MG/0.5 ML INH NEB SOLN NEB ×3 (08:00→16:28)
[2018-05-23] MEDS: MOM 30ML SUSPENSION UDC PO (08:02)
[2018-05-23] MEDS: FLUTICASONE PROP 0.05% NASAL SPRAY 16 GM (FLONASE) NARES (08:02)
[2018-05-23] MEDS: ACETAMINOPHEN 500 MG TAB PO ×2 (08:08→20:13)
[2018-05-23] MEDS: ADVAIR HFA 230/21MCG INHALER INH ×2 (08:28→21:03)
[2018-05-23] MEDS: TIOTROPIUM INHALER/CAPSULE (SPIRIVA) INH (08:28)
[2018-05-23] MEDS: BISACODYL 10 MG SUPP PR (09:51)
[2018-05-23 12:22] LABS: BEDSIDE GLUCOSE 124 MG/DL (83-110)
[2018-05-23 16:40] LABS: BEDSIDE GLUCOSE 122 MG/DL (83-110)
[2018-05-23] MEDS: RIVAROXABAN 10 MG TAB (XARELTO) PO (17:02)
[2018-05-23 20:06] LABS: BEDSIDE GLUCOSE 119 MG/DL (83-110)
[2018-05-23] MEDS: SENNA 8.6 MG TAB (SENOKOT) PO (20:13)
[2018-05-24] MEDS: LEVOTHYROXINE 112MCG TABLET (0.112MG) PO (05:55)
[2018-05-24 06:30] LABS: BEDSIDE GLUCOSE 106 MG/DL (83-110)
[2018-05-24] MEDS: ALBUTEROL SULFATE 2.5 MG/0.5 ML INH NEB SOLN NEB ×4 (08:00→23:24)
[2018-05-24] MEDS: HumaLOG INSULIN (NovoLOG) PER UNIT SC ×3 (08:04→17:23)
[2018-05-24] MEDS: TIOTROPIUM INHALER/CAPSULE (SPIRIVA) INH (08:09)
[2018-05-24] MEDS: ADVAIR HFA 230/21MCG INHALER INH ×2 (08:09→20:57)
[2018-05-24] MEDS: RANOLAZINE 500 MG ER TAB PO ×2 (08:19→21:01)
[2018-05-24] MEDS: BISOPROLOL FUMARATE 5 MG TAB PO (08:22)
[2018-05-24] MEDS: VITAMIN D 1,000 INTERNATIONAL UNITS TABLET PO (08:23)
[2018-05-24] MEDS: ASPIRIN 81 MG ENTERIC TAB PO (08:23)
[2018-05-24] MEDS: metFORMIN XR 750 MG TAB PO (08:23)
[2018-05-24] MEDS: PANTOPRAZOLE 40MG TAB (PROTONIX) PO (08:23)
[2018-05-24] MEDS: DOCUSATE SODIUM 100 MG CAP PO ×2 (08:23→21:01)
[2018-05-24] MEDS: FLUoxetine 20 MG CAP PO (08:23)
[2018-05-24] MEDS: GABAPENTIN 300 MG CAP PO (08:23)
[2018-05-24] MEDS: CETIRIZINE (ZyrTEC) 10 MG TAB PO (08:23)
[2018-05-24] MEDS: FLUTICASONE PROP 0.05% NASAL SPRAY 16 GM (FLONASE) NARES (08:24)
[2018-05-24 11:29] LABS: BEDSIDE GLUCOSE 111 MG/DL (83-110)
[2018-05-24] MEDS ORDERED: ISOVUE-370 76% 100ML VIAL (Q9967) As Ordered (12:08)
[2018-05-24 16:39] LABS: BEDSIDE GLUCOSE 118 MG/DL (83-110)
[2018-05-24] MEDS: RIVAROXABAN 20 MG TAB (XARELTO) PO (17:22)
[2018-05-24 20:37] LABS: BEDSIDE GLUCOSE 113 MG/DL (83-110)
[2018-05-24] MEDS: SENNA 8.6 MG TAB (SENOKOT) PO (21:01)
[2018-05-24] MEDS: ACETAMINOPHEN 500 MG TAB PO (23:53)
[2018-05-25] MEDS: LEVOTHYROXINE 112MCG TABLET (0.112MG) PO (05:38)
[2018-05-25 06:21] LABS: BEDSIDE GLUCOSE 114 MG/DL (83-110)
[2018-05-25 06:41] LABS: HEMATOCRIT 31.6 % (36.0-47.0); HEMOGLOBIN 10.2 g/dl (12.0-15.5); MEAN CORPUSCULAR HEMOGLOBIN 30.5 pg (27.0-33.0); MEAN CORPUSCULAR HGB CONC 32.3 g/dl (32.0-36.5); MEAN CORPUSCULAR VOLUME 94.6 fl (80.0-96.0); PLATELET COUNT, AUTOMATED 344 10^3/uL (150-450); RED BLOOD COUNT 3.34 10^6/uL (4.00-5.40); WHITE BLOOD COUNT 7.3 10^3/uL (4.0-10.0)
[2018-05-25 07:10] LABS: ANION GAP 8 MEQ/L (8-16); BLOOD UREA NITROGEN 15 MG/DL (7-18); CALCIUM LEVEL 9.2 MG/DL (8.8-10.2); CARBON DIOXIDE LEVEL 28 MEQ/L (21-32); CHLORIDE LEVEL 102 MEQ/L (98-107); CREATININE FOR GFR 0.64 MG/DL (0.55-1.30); GLOMERULAR FILTRATION RATE > 60.0 (>39); GLUCOSE, FASTING 115 MG/DL (70-100); POTASSIUM SERUM 4.3 MEQ/L (3.5-5.1); SODIUM LEVEL 138 MEQ/L (136-145)
[2018-05-25] MEDS: HumaLOG INSULIN (NovoLOG) PER UNIT SC ×3 (08:00→17:30)
[2018-05-25] MEDS: ALBUTEROL SULFATE 2.5 MG/0.5 ML INH NEB SOLN NEB ×3 (09:04→20:36)
[2018-05-25] MEDS: ADVAIR HFA 230/21MCG INHALER INH (09:04)
[2018-05-25] MEDS: TIOTROPIUM INHALER/CAPSULE (SPIRIVA) INH (09:04)
[2018-05-25] MEDS: GABAPENTIN 300 MG CAP PO (09:37)
[2018-05-25] MEDS: FLUoxetine 20 MG CAP PO (09:37)
[2018-05-25] MEDS: DOCUSATE SODIUM 100 MG CAP PO ×2 (09:37→20:08)
[2018-05-25] MEDS: ASPIRIN 81 MG ENTERIC TAB PO (09:37)
[2018-05-25] MEDS: VITAMIN D 1,000 INTERNATIONAL UNITS TABLET PO (09:37)
[2018-05-25] MEDS: PANTOPRAZOLE 40MG TAB (PROTONIX) PO (09:37)
[2018-05-25] MEDS: CETIRIZINE (ZyrTEC) 10 MG TAB PO (09:38)
[2018-05-25] MEDS: FLUTICASONE PROP 0.05% NASAL SPRAY 16 GM (FLONASE) NARES (09:38)
[2018-05-25] MEDS: RANOLAZINE 500 MG ER TAB PO ×2 (09:39→20:08)
[2018-05-25] MEDS: BISOPROLOL FUMARATE 10 MG TAB PO (09:44)
[2018-05-25] MEDS: ACETAMINOPHEN 500 MG TAB PO ×2 (11:22→23:21)
[2018-05-25 11:50] LABS: BEDSIDE GLUCOSE 109 MG/DL (83-110)
[2018-05-25 16:45] LABS: BEDSIDE GLUCOSE 122 MG/DL (83-110)
[2018-05-25] MEDS: RIVAROXABAN 20 MG TAB (XARELTO) PO (17:19)
[2018-05-25 18:30] LABS: KETONE, URINE AUTO RFX NEGATIVE (NEGATIVE); MUCUS, URINE RFX SMALL (NEGATIVE); NITRITE, URINE AUTO RFX NEGATIVE (NEGATIVE); RBC, URINE AUTO RFX 2 /HPF (0-3); SPECIFIC GRAVITY UR AUTO RFX 1.014 (1.002-1.035); SQUAM EPITHELIAL CELL UR AURFX 3 /HPF (0-6); WBC, URINE AUTO RFX 7 /HPF (0-3)
[2018-05-25 18:33] LABS: LEUKOCYTE ESTERASE UR AUTO RFX 1+ (NEGATIVE)
[2018-05-25] MEDS: SENNA 8.6 MG TAB (SENOKOT) PO (20:08)
[2018-05-25 20:37] LABS: BEDSIDE GLUCOSE 149 MG/DL (83-110)
[2018-05-25] MEDS: LIDOCAINE 5% (LIDODERM) PATCH TD (23:22)
[2018-05-26] MEDS: LevoFLOXacin 750 MG TABLET PO (06:12)
[2018-05-26] MEDS: LEVOTHYROXINE 112MCG TABLET (0.112MG) PO (06:12)
[2018-05-26 06:20] LABS: BEDSIDE GLUCOSE 134 MG/DL (83-110)
[2018-05-26] MEDS: ACETAMINOPHEN 500 MG TAB PO ×2 (06:56→21:08)
[2018-05-26 07:13] LABS: ANION GAP 7 MEQ/L (8-16); BLOOD UREA NITROGEN 15 MG/DL (7-18); CALCIUM LEVEL 8.8 MG/DL (8.8-10.2); CARBON DIOXIDE LEVEL 30 MEQ/L (21-32); CHLORIDE LEVEL 102 MEQ/L (98-107); CREATININE FOR GFR 0.78 MG/DL (0.55-1.30); GLOMERULAR FILTRATION RATE > 60.0 (>39); GLUCOSE, FASTING 133 MG/DL (70-100); POTASSIUM SERUM 4.1 MEQ/L (3.5-5.1); SODIUM LEVEL 139 MEQ/L (136-145)
[2018-05-26] MEDS: HumaLOG INSULIN (NovoLOG) PER UNIT SC ×3 (07:30→17:28)
[2018-05-26] MEDS: ALBUTEROL SULFATE 2.5 MG/0.5 ML INH NEB SOLN NEB ×3 (08:00→23:16)
[2018-05-26] MEDS: ADVAIR HFA 230/21MCG INHALER INH ×3 (08:13→21:32)
[2018-05-26] MEDS: TIOTROPIUM INHALER/CAPSULE (SPIRIVA) INH (08:13)
[2018-05-26] MEDS: FLUoxetine 20 MG CAP PO (08:37)
[2018-05-26] MEDS: RANOLAZINE 500 MG ER TAB PO ×2 (08:37→21:07)
[2018-05-26] MEDS: ASPIRIN 81 MG ENTERIC TAB PO (08:37)
[2018-05-26] MEDS: VITAMIN D 1,000 INTERNATIONAL UNITS TABLET PO (08:37)
[2018-05-26] MEDS: DOCUSATE SODIUM 100 MG CAP PO ×2 (08:38→21:07)
[2018-05-26] MEDS: FLUTICASONE PROP 0.05% NASAL SPRAY 16 GM (FLONASE) NARES (08:38)
[2018-05-26] MEDS: **NOTE PATIENT COMMENT** MISC XX (08:38)
[2018-05-26] MEDS: BISOPROLOL FUMARATE 10 MG TAB PO (08:38)
[2018-05-26] MEDS: PANTOPRAZOLE 40MG TAB (PROTONIX) PO (08:38)
[2018-05-26] MEDS: CETIRIZINE (ZyrTEC) 10 MG TAB PO (08:38)
[2018-05-26 11:17] LABS: BEDSIDE GLUCOSE 100 MG/DL (83-110)
[2018-05-26] MEDS ORDERED: FLEET ENEMA PR (11:30)
[2018-05-26 11:45] LABS: TROPONIN I < 0.02 NG/ML (< 0.10)
[2018-05-26 16:20] LABS: BEDSIDE GLUCOSE 135 MG/DL (83-110)
[2018-05-26] MEDS: RIVAROXABAN 20 MG TAB (XARELTO) PO (17:27)
[2018-05-26 18:14] LABS: ESTIMATED AVERAGE GLUCOSE 131 MG/DL (60-110); HEMOGLOBIN A1c 6.2 %
[2018-05-26 18:16] LABS: CHOLESTEROL LEVEL 185 MG/DL (<200); CHOLESTEROL RISK RATIO 4.868 (<5); CPK CREATINE PHOSPHOKINASE 140 U/L (26-192); HDL CHOLESTEROL 38 MG/DL (>40); LDL CHOLESTEROL 103 MG/DL (<100); MB/CK RELATIVE INDEX 2.21 (< OR =4); NON-HDL-C 147 MG/DL; TRIGLYCERIDES LEVEL 218 MG/DL (<150); TROPONIN I < 0.02 NG/ML (< 0.10)
[2018-05-26 20:11] LABS: BEDSIDE GLUCOSE 115 MG/DL (83-110)
[2018-05-26] MEDS: SENNA 8.6 MG TAB (SENOKOT) PO (21:07)
[2018-05-26] MEDS: AUGMENTIN 500 MG TAB PO (21:07)
[2018-05-26] MEDS: LIDOCAINE 5% (LIDODERM) PATCH TD (21:08)
[2018-05-27 02:11] LABS: CPK CREATINE PHOSPHOKINASE 128 U/L (26-192); MB/CK RELATIVE INDEX 2.03 (< OR =4); TROPONIN I < 0.02 NG/ML (< 0.10)
[2018-05-27] MEDS: LEVOTHYROXINE 112MCG TABLET (0.112MG) PO (05:38)
[2018-05-27 06:50] LABS: BASO # 0.1 10^3/uL (0.0-0.2); BASO % 0.8 % (0.0-1.0); EOS # 0.2 10^3/uL (0.0-0.50); EOS % 3.6 % (0.0-3.0); HEMATOCRIT 32.4 % (36.0-47.0); HEMOGLOBIN 10.5 g/dl (12.0-15.5); IMMATURE GRANULOCYTE % 1.1 % (0-3.0); LYMPH # 1.3 10^3/uL (1.5-4.5); LYMPH % 19.6 % (24.0-44.0); MEAN CORPUSCULAR HEMOGLOBIN 30.6 pg (27.0-33.0); MEAN CORPUSCULAR HGB CONC 32.4 g/dl (32.0-36.5); MEAN CORPUSCULAR VOLUME 94.5 fl (80.0-96.0); MONO # 0.7 10^3/uL (0.0-0.8); MONO % 11.6 % (0.0-5.0); NEUTROPHILS # 4.1 10^3/uL (1.8-7.7); NEUTROPHILS % 63.3 % (36.0-66.0); PLATELET COUNT, AUTOMATED 378 10^3/uL (150-450); RED BLOOD COUNT 3.43 10^6/uL (4.00-5.40); RED CELL DISTRIBUTION WIDTH 16.3 % (11.5-14.5); WHITE BLOOD COUNT 6.4 10^3/uL (4.0-10.0)
[2018-05-27 07:24] LABS: ALBUMIN 3.1 GM/DL (3.2-5.2); ALBUMIN/GLOBULIN RATIO 0.74 (1.00-1.93); ALKALINE PHOSPHATASE 64 U/L (45-117); ALT/SGPT 23 U/L (12-78); ANION GAP 8 MEQ/L (8-16); AST/SGOT 34 U/L (7-37); BILIRUBIN,TOTAL 0.6 MG/DL (0.2-1.0); BLOOD UREA NITROGEN 14 MG/DL (7-18); CALCIUM LEVEL 9.2 MG/DL (8.8-10.2); CARBON DIOXIDE LEVEL 28 MEQ/L (21-32); CHLORIDE LEVEL 101 MEQ/L (98-107); CREATININE FOR GFR 0.77 MG/DL (0.55-1.30); GLOMERULAR FILTRATION RATE > 60.0 (>39); GLUCOSE, FASTING 130 MG/DL (70-100); POTASSIUM SERUM 4.1 MEQ/L (3.5-5.1); SODIUM LEVEL 137 MEQ/L (136-145); TOTAL PROTEIN 7.3 GM/DL (6.4-8.2)
[2018-05-27] MEDS: ADVAIR HFA 230/21MCG INHALER INH ×2 (07:49→20:49)
[2018-05-27] MEDS: ALBUTEROL SULFATE 2.5 MG/0.5 ML INH NEB SOLN NEB ×2 (07:49→15:25)
[2018-05-27] MEDS: TIOTROPIUM INHALER/CAPSULE (SPIRIVA) INH (07:49)
[2018-05-27] MEDS: HumaLOG INSULIN (NovoLOG) PER UNIT SC ×3 (08:06→17:27)
[2018-05-27] MEDS: AUGMENTIN 500 MG TAB PO ×2 (08:07→20:33)
[2018-05-27] MEDS: ACETAMINOPHEN 500 MG TAB PO ×2 (08:07→16:22)
[2018-05-27] MEDS: ASPIRIN 81 MG ENTERIC TAB PO (08:07)
[2018-05-27] MEDS: RANOLAZINE 500 MG ER TAB PO ×2 (08:10→20:33)
[2018-05-27] MEDS: FLUoxetine 20 MG CAP PO (08:10)
[2018-05-27] MEDS: BISOPROLOL FUMARATE 10 MG TAB PO (08:10)
[2018-05-27] MEDS: DOCUSATE SODIUM 100 MG CAP PO ×2 (08:11→20:34)
[2018-05-27] MEDS: VITAMIN D 1,000 INTERNATIONAL UNITS TABLET PO (08:11)
[2018-05-27] MEDS: PANTOPRAZOLE 40MG TAB (PROTONIX) PO (08:11)
[2018-05-27] MEDS: CETIRIZINE (ZyrTEC) 10 MG TAB PO (08:11)
[2018-05-27] MEDS: FLUTICASONE PROP 0.05% NASAL SPRAY 16 GM (FLONASE) NARES (08:11)
[2018-05-27] MEDS: **NOTE PATIENT COMMENT** MISC XX (08:12)
[2018-05-27 11:59] LABS: BEDSIDE GLUCOSE 119 MG/DL (83-110)
[2018-05-27 17:08] LABS: BEDSIDE GLUCOSE 113 MG/DL (83-110)
[2018-05-27] MEDS: RIVAROXABAN 20 MG TAB (XARELTO) PO (17:27)
[2018-05-27 20:16] LABS: BEDSIDE GLUCOSE 126 MG/DL (83-110)
[2018-05-27] MEDS: SENNA 8.6 MG TAB (SENOKOT) PO (20:34)
[2018-05-27] MEDS: LIDOCAINE 5% (LIDODERM) PATCH TD (20:34)
[2018-05-28] MEDS: ACETAMINOPHEN 500 MG TAB PO ×2 (05:29→20:03)
[2018-05-28] MEDS: LEVOTHYROXINE 112MCG TABLET (0.112MG) PO (05:29)
[2018-05-28 07:15] LABS: ANION GAP 5 MEQ/L (8-16); BLOOD UREA NITROGEN 14 MG/DL (7-18); CALCIUM LEVEL 8.9 MG/DL (8.8-10.2); CARBON DIOXIDE LEVEL 31 MEQ/L (21-32); CHLORIDE LEVEL 104 MEQ/L (98-107); CREATININE FOR GFR 0.75 MG/DL (0.55-1.30); GLOMERULAR FILTRATION RATE > 60.0 (>39); GLUCOSE, FASTING 129 MG/DL (70-100); POTASSIUM SERUM 4.5 MEQ/L (3.5-5.1); SODIUM LEVEL 140 MEQ/L (136-145)
[2018-05-28] MEDS: ALBUTEROL SULFATE 2.5 MG/0.5 ML INH NEB SOLN NEB ×3 (07:49→14:50)
[2018-05-28] MEDS: **NOTE PATIENT COMMENT** MISC XX (09:00)
[2018-05-28] MEDS: HumaLOG INSULIN (NovoLOG) PER UNIT SC ×3 (09:29→17:21)
[2018-05-28] MEDS: BISOPROLOL FUMARATE 10 MG TAB PO (09:30)
[2018-05-28] MEDS: AUGMENTIN 500 MG TAB PO ×2 (09:30→20:04)
[2018-05-28] MEDS: PANTOPRAZOLE 40MG TAB (PROTONIX) PO (09:30)
[2018-05-28] MEDS: FLUoxetine 20 MG CAP PO (09:30)
[2018-05-28] MEDS: ASPIRIN 81 MG ENTERIC TAB PO (09:30)
[2018-05-28] MEDS: CETIRIZINE (ZyrTEC) 10 MG TAB PO (09:30)
[2018-05-28] MEDS: RANOLAZINE 500 MG ER TAB PO ×2 (09:30→20:03)
[2018-05-28] MEDS: VITAMIN D 1,000 INTERNATIONAL UNITS TABLET PO (09:30)
[2018-05-28] MEDS: DOCUSATE SODIUM 100 MG CAP PO ×2 (09:31→20:03)
[2018-05-28] MEDS: FLUTICASONE PROP 0.05% NASAL SPRAY 16 GM (FLONASE) NARES (09:31)
[2018-05-28 11:25] LABS: BEDSIDE GLUCOSE 117 MG/DL (83-110)
[2018-05-28] MEDS: ADVAIR HFA 230/21MCG INHALER INH ×2 (11:29→20:16)
[2018-05-28] MEDS: TIOTROPIUM INHALER/CAPSULE (SPIRIVA) INH (11:29)
[2018-05-28 13:32] LABS: BEDSIDE GLUCOSE 111 MG/DL (83-110)
[2018-05-28 16:45] LABS: BEDSIDE GLUCOSE 133 MG/DL (83-110)
[2018-05-28] MEDS: RIVAROXABAN 20 MG TAB (XARELTO) PO (17:21)
[2018-05-28 19:37] LABS: BEDSIDE GLUCOSE 140 MG/DL (83-110)
[2018-05-28] MEDS: SENNA 8.6 MG TAB (SENOKOT) PO (20:03)
[2018-05-28] MEDS: LIDOCAINE 5% (LIDODERM) PATCH TD (20:03)
[2018-05-29 05:44] LABS: BEDSIDE GLUCOSE 133 MG/DL (83-110)
[2018-05-29] MEDS: ACETAMINOPHEN 500 MG TAB PO ×2 (05:49→21:05)
[2018-05-29] MEDS: LEVOTHYROXINE 112MCG TABLET (0.112MG) PO (05:49)
[2018-05-29] MEDS: HumaLOG INSULIN (NovoLOG) PER UNIT SC ×3 (07:30→16:55)
[2018-05-29] MEDS: ALBUTEROL SULFATE 2.5 MG/0.5 ML INH NEB SOLN NEB ×2 (08:00)
[2018-05-29] MEDS: BISOPROLOL FUMARATE 10 MG TAB PO (08:44)
[2018-05-29] MEDS: ASPIRIN 81 MG ENTERIC TAB PO (08:44)
[2018-05-29] MEDS: CETIRIZINE (ZyrTEC) 10 MG TAB PO (08:44)
[2018-05-29] MEDS: FLUoxetine 20 MG CAP PO (08:44)
[2018-05-29] MEDS: PANTOPRAZOLE 40MG TAB (PROTONIX) PO (08:44)
[2018-05-29] MEDS: AUGMENTIN 500 MG TAB PO ×2 (08:44→21:05)
[2018-05-29] MEDS: VITAMIN D 1,000 INTERNATIONAL UNITS TABLET PO (08:44)
[2018-05-29] MEDS: DOCUSATE SODIUM 100 MG CAP PO ×2 (08:45→21:05)
[2018-05-29] MEDS: FLUTICASONE PROP 0.05% NASAL SPRAY 16 GM (FLONASE) NARES (08:45)
[2018-05-29] MEDS: RANOLAZINE 500 MG ER TAB PO ×2 (08:48→21:05)
[2018-05-29] MEDS: **NOTE PATIENT COMMENT** MISC XX (09:00)
[2018-05-29] MEDS: ADVAIR HFA 230/21MCG INHALER INH ×2 (09:03→20:12)
[2018-05-29] MEDS: TIOTROPIUM INHALER/CAPSULE (SPIRIVA) INH (09:03)
[2018-05-29 11:51] LABS: BEDSIDE GLUCOSE 143 MG/DL (83-110)
[2018-05-29] MEDS: ALIROCUMAB 75 MG/ML SC (15:50)
[2018-05-29] MEDS: RIVAROXABAN 20 MG TAB (XARELTO) PO (17:23)
[2018-05-29 20:13] LABS: BEDSIDE GLUCOSE 126 MG/DL (83-110)
[2018-05-29] MEDS: SENNA 8.6 MG TAB (SENOKOT) PO (21:05)
[2018-05-29] MEDS: LIDOCAINE 5% (LIDODERM) PATCH TD (21:05)
[2018-05-30] MEDS: LEVOTHYROXINE 112MCG TABLET (0.112MG) PO (06:02)
[2018-05-30] MEDS: ACETAMINOPHEN 500 MG TAB PO ×3 (06:02→22:02)
[2018-05-30 06:12] LABS: BEDSIDE GLUCOSE 125 MG/DL (83-110)
[2018-05-30 06:12] LABS: BEDSIDE GLUCOSE 129 MG/DL (83-110)
[2018-05-30] MEDS: HumaLOG INSULIN (NovoLOG) PER UNIT SC ×3 (07:30→16:49)
[2018-05-30] MEDS: ALBUTEROL SULFATE 2.5 MG/0.5 ML INH NEB SOLN NEB ×3 (08:00→23:51)
[2018-05-30] MEDS: ADVAIR HFA 230/21MCG INHALER INH ×2 (08:11→19:55)
[2018-05-30] MEDS: TIOTROPIUM INHALER/CAPSULE (SPIRIVA) INH (08:11)
[2018-05-30] MEDS: RANOLAZINE 500 MG ER TAB PO ×2 (08:13→22:02)
[2018-05-30] MEDS: VITAMIN D 1,000 INTERNATIONAL UNITS TABLET PO (08:14)
[2018-05-30] MEDS: PANTOPRAZOLE 40MG TAB (PROTONIX) PO (08:14)
[2018-05-30] MEDS: AUGMENTIN 500 MG TAB PO ×2 (08:14→22:03)
[2018-05-30] MEDS: FLUoxetine 20 MG CAP PO (08:14)
[2018-05-30] MEDS: BISOPROLOL FUMARATE 10 MG TAB PO (08:14)
[2018-05-30] MEDS: DOCUSATE SODIUM 100 MG CAP PO ×2 (08:14→22:03)
[2018-05-30] MEDS: CETIRIZINE (ZyrTEC) 10 MG TAB PO (08:14)
[2018-05-30] MEDS: ASPIRIN 81 MG ENTERIC TAB PO (08:14)
[2018-05-30] MEDS: FLUTICASONE PROP 0.05% NASAL SPRAY 16 GM (FLONASE) NARES (08:14)
[2018-05-30] MEDS: **NOTE PATIENT COMMENT** MISC XX (08:15)
[2018-05-30 11:55] LABS: BEDSIDE GLUCOSE 110 MG/DL (83-110)
[2018-05-30] MEDS: MOM 30ML SUSPENSION UDC PO (14:00)
[2018-05-30] MEDS: RIVAROXABAN 20 MG TAB (XARELTO) PO (17:03)
[2018-05-30 20:39] LABS: BEDSIDE GLUCOSE 131 MG/DL (83-110)
[2018-05-30] MEDS: SENNA 8.6 MG TAB (SENOKOT) PO (22:02)
[2018-05-30] MEDS: LIDOCAINE 5% (LIDODERM) PATCH TD (22:03)
[2018-05-31 00:48] LABS: BEDSIDE GLUCOSE 183 MG/DL (83-110)
[2018-05-31] MEDS: LEVOTHYROXINE 112MCG TABLET (0.112MG) PO (06:14)
[2018-05-31] MEDS: ACETAMINOPHEN 500 MG TAB PO ×2 (06:14→18:32)
[2018-05-31] MEDS: ADVAIR HFA 230/21MCG INHALER INH ×2 (07:16→20:14)
[2018-05-31] MEDS: TIOTROPIUM INHALER/CAPSULE (SPIRIVA) INH (07:16)
[2018-05-31 07:18] LABS: BASO # 0.1 10^3/uL (0.0-0.2); BASO % 0.6 % (0.0-1.0); EOS # 0.2 10^3/uL (0.0-0.50); EOS % 2.1 % (0.0-3.0); HEMATOCRIT 32.4 % (36.0-47.0); HEMOGLOBIN 10.2 g/dl (12.0-15.5); IMMATURE GRANULOCYTE % 0.6 % (0-3.0); LYMPH # 2.3 10^3/uL (1.5-4.5); LYMPH % 28.2 % (24.0-44.0); MEAN CORPUSCULAR HGB CONC 31.5 g/dl (32.0-36.5); MEAN CORPUSCULAR VOLUME 95.3 fl (80.0-96.0); MONO # 0.9 10^3/uL (0.0-0.8); MONO % 11.6 % (0.0-5.0); NEUTROPHILS # 4.6 10^3/uL (1.8-7.7); NEUTROPHILS % 56.9 % (36.0-66.0); PLATELET COUNT, AUTOMATED 383 10^3/uL (150-450); RED CELL DISTRIBUTION WIDTH 16.7 % (11.5-14.5); WHITE BLOOD COUNT 8.1 10^3/uL (4.0-10.0)
[2018-05-31 07:33] LABS: ANION GAP 7 MEQ/L (8-16); BLOOD UREA NITROGEN 17 MG/DL (7-18); CALCIUM LEVEL 9.4 MG/DL (8.8-10.2); CARBON DIOXIDE LEVEL 28 MEQ/L (21-32); CHLORIDE LEVEL 104 MEQ/L (98-107); CREATININE FOR GFR 0.77 MG/DL (0.55-1.30); GLOMERULAR FILTRATION RATE > 60.0 (>39); GLUCOSE, FASTING 131 MG/DL (70-100); POTASSIUM SERUM 4.2 MEQ/L (3.5-5.1); SODIUM LEVEL 139 MEQ/L (136-145)
[2018-05-31] MEDS: ALBUTEROL SULFATE 2.5 MG/0.5 ML INH NEB SOLN NEB ×2 (08:00→15:11)
[2018-05-31] MEDS: **NOTE PATIENT COMMENT** MISC XX (09:00)
[2018-05-31] MEDS: RANOLAZINE 500 MG ER TAB PO ×2 (09:09→20:39)
[2018-05-31] MEDS: DOCUSATE SODIUM 100 MG CAP PO ×2 (09:09→20:39)
[2018-05-31] MEDS: FLUoxetine 20 MG CAP PO (09:09)
[2018-05-31] MEDS: PANTOPRAZOLE 40MG TAB (PROTONIX) PO (09:09)
[2018-05-31] MEDS: CETIRIZINE (ZyrTEC) 10 MG TAB PO (09:09)
[2018-05-31] MEDS: ASPIRIN 81 MG ENTERIC TAB PO (09:09)
[2018-05-31] MEDS: AUGMENTIN 500 MG TAB PO (09:09)
[2018-05-31] MEDS: VITAMIN D 1,000 INTERNATIONAL UNITS TABLET PO (09:09)
[2018-05-31] MEDS: FLUTICASONE PROP 0.05% NASAL SPRAY 16 GM (FLONASE) NARES (09:10)
[2018-05-31] MEDS: HumaLOG INSULIN (NovoLOG) PER UNIT SC ×3 (09:10→17:02)
[2018-05-31] MEDS: BISOPROLOL FUMARATE 10 MG TAB PO (09:10)
[2018-05-31 11:33] LABS: BEDSIDE GLUCOSE 98 MG/DL (83-110)
[2018-05-31] MEDS ORDERED: ALBUTEROL 90 MCG/ACT 8GM HFA INHALER INH (15:45)
[2018-05-31 16:46] LABS: BEDSIDE GLUCOSE 129 MG/DL (83-110)
[2018-05-31] MEDS: RIVAROXABAN 20 MG TAB (XARELTO) PO (17:01)
[2018-05-31 19:52] LABS: BEDSIDE GLUCOSE 126 MG/DL (83-110)
[2018-05-31] MEDS: GABAPENTIN 300 MG CAP PO (20:39)
[2018-05-31] MEDS: SENNA 8.6 MG TAB (SENOKOT) PO (20:39)
[2018-05-31] MEDS: LIDOCAINE 5% (LIDODERM) PATCH TD (20:40)
[2018-06-01 02:09] LABS: KETONE, URINE AUTO RFX NEGATIVE (NEGATIVE); LEUKOCYTE ESTERASE UR AUTO RFX NEGATIVE (NEGATIVE); NITRITE, URINE AUTO RFX NEGATIVE (NEGATIVE); RBC, URINE AUTO RFX 2 /HPF (0-3); SPECIFIC GRAVITY UR AUTO RFX 1.006 (1.002-1.035); SQUAM EPITHELIAL CELL UR AURFX 2 /HPF (0-6); TRANSITIONAL EPITHELIAL AU RFX <1 /HPF; WBC, URINE AUTO RFX 3 /HPF (0-3)
[2018-06-01] MEDS: LEVOTHYROXINE 112MCG TABLET (0.112MG) PO (05:53)
[2018-06-01 06:15] LABS: BEDSIDE GLUCOSE 140 MG/DL (83-110)
[2018-06-01] MEDS: VITAMIN D 1,000 INTERNATIONAL UNITS TABLET PO (08:26)
[2018-06-01] MEDS: PANTOPRAZOLE 40MG TAB (PROTONIX) PO (08:26)
[2018-06-01] MEDS: CETIRIZINE (ZyrTEC) 10 MG TAB PO (08:26)
[2018-06-01] MEDS: RANOLAZINE 500 MG ER TAB PO ×2 (08:26→20:16)
[2018-06-01] MEDS: DOCUSATE SODIUM 100 MG CAP PO ×2 (08:26→20:16)
[2018-06-01] MEDS: ASPIRIN 81 MG ENTERIC TAB PO (08:26)
[2018-06-01] MEDS: FLUTICASONE PROP 0.05% NASAL SPRAY 16 GM (FLONASE) NARES (08:27)
[2018-06-01] MEDS: **NOTE PATIENT COMMENT** MISC XX (08:27)
[2018-06-01] MEDS: BISOPROLOL FUMARATE 10 MG TAB PO (08:27)
[2018-06-01] MEDS: FLUoxetine 20 MG CAP PO (08:27)
[2018-06-01] MEDS: ACETAMINOPHEN 500 MG TAB PO ×2 (08:41→21:44)
[2018-06-01] MEDS: ADVAIR HFA 230/21MCG INHALER INH ×2 (08:48→20:01)
[2018-06-01] MEDS: TIOTROPIUM INHALER/CAPSULE (SPIRIVA) INH (08:48)
[2018-06-01 12:08] LABS: BEDSIDE GLUCOSE 93 MG/DL (83-110)
[2018-06-01 17:06] LABS: BEDSIDE GLUCOSE 139 MG/DL (83-110)
[2018-06-01] MEDS: RIVAROXABAN 20 MG TAB (XARELTO) PO (17:36)
[2018-06-01] MEDS: LIDOCAINE 5% (LIDODERM) PATCH TD (20:16)
[2018-06-01] MEDS: SENNA 8.6 MG TAB (SENOKOT) PO (20:16)
[2018-06-01] MEDS: GABAPENTIN 300 MG CAP PO (20:16)
[2018-06-02] MEDS: LEVOTHYROXINE 112MCG TABLET (0.112MG) PO (05:47)
[2018-06-02 06:26] LABS: BEDSIDE GLUCOSE 124 MG/DL (83-110)
[2018-06-02] MEDS: TIOTROPIUM INHALER/CAPSULE (SPIRIVA) INH ×2 (08:00→09:17)
[2018-06-02] MEDS: ADVAIR HFA 230/21MCG INHALER INH ×2 (08:00→09:17)
[2018-06-02] MEDS: ACETAMINOPHEN 500 MG TAB PO ×2 (08:21→16:43)
[2018-06-02] MEDS: VITAMIN D 1,000 INTERNATIONAL UNITS TABLET PO (08:22)
[2018-06-02] MEDS: RANOLAZINE 500 MG ER TAB PO ×2 (08:22→20:45)
[2018-06-02] MEDS: DOCUSATE SODIUM 100 MG CAP PO ×2 (08:22→20:45)
[2018-06-02] MEDS: FLUTICASONE PROP 0.05% NASAL SPRAY 16 GM (FLONASE) NARES (08:22)
[2018-06-02] MEDS: CETIRIZINE (ZyrTEC) 10 MG TAB PO (08:22)
[2018-06-02] MEDS: PANTOPRAZOLE 40MG TAB (PROTONIX) PO (08:22)
[2018-06-02] MEDS: ASPIRIN 81 MG ENTERIC TAB PO (08:22)
[2018-06-02] MEDS: BISOPROLOL FUMARATE 10 MG TAB PO (08:22)
[2018-06-02] MEDS: FLUoxetine 20 MG CAP PO (08:22)
[2018-06-02] MEDS: **NOTE PATIENT COMMENT** MISC XX (08:22)
[2018-06-02] MEDS: RAMIPRIL 5 MG CAP PO (12:06)
[2018-06-02 16:44] LABS: BEDSIDE GLUCOSE 128 MG/DL (83-110)
[2018-06-02] MEDS: RIVAROXABAN 20 MG TAB (XARELTO) PO (17:12)
[2018-06-02] MEDS: SENNA 8.6 MG TAB (SENOKOT) PO (20:45)
[2018-06-02] MEDS: GABAPENTIN 300 MG CAP PO (20:45)
[2018-06-02] MEDS: LIDOCAINE 5% (LIDODERM) PATCH TD (20:46)
[2018-06-03] MEDS: LEVOTHYROXINE 112MCG TABLET (0.112MG) PO (05:39)
[2018-06-03] MEDS: ACETAMINOPHEN 500 MG TAB PO ×2 (06:09→20:51)
[2018-06-03 06:20] LABS: BEDSIDE GLUCOSE 123 MG/DL (83-110)
[2018-06-03] MEDS: TIOTROPIUM INHALER/CAPSULE (SPIRIVA) INH (07:23)
[2018-06-03] MEDS: ADVAIR HFA 230/21MCG INHALER INH (07:23)
[2018-06-03] MEDS: FLUoxetine 20 MG CAP PO (08:14)
[2018-06-03] MEDS: VITAMIN D 1,000 INTERNATIONAL UNITS TABLET PO (08:14)
[2018-06-03] MEDS: BISOPROLOL FUMARATE 10 MG TAB PO (08:14)
[2018-06-03] MEDS: PANTOPRAZOLE 40MG TAB (PROTONIX) PO (08:14)
[2018-06-03] MEDS: DOCUSATE SODIUM 100 MG CAP PO ×2 (08:14→20:50)
[2018-06-03] MEDS: FLUTICASONE PROP 0.05% NASAL SPRAY 16 GM (FLONASE) NARES (08:15)
[2018-06-03] MEDS: **NOTE PATIENT COMMENT** MISC XX (08:15)
[2018-06-03] MEDS: ASPIRIN 81 MG ENTERIC TAB PO (08:15)
[2018-06-03] MEDS: RANOLAZINE 500 MG ER TAB PO ×2 (08:15→20:51)
[2018-06-03] MEDS: CETIRIZINE (ZyrTEC) 10 MG TAB PO (08:15)
[2018-06-03] MEDS ORDERED: ISOSORBIDE MON. (IMDUR) 60 MG XR TAB PO (09:00)
[2018-06-03] MEDS: RAMIPRIL 5 MG CAP PO (09:48)
[2018-06-03] MEDS: ISOSORBIDE MON. (IMDUR) 30 MG XR TAB PO (11:23)
[2018-06-03] MEDS: RIVAROXABAN 20 MG TAB (XARELTO) PO (17:26)
[2018-06-03 19:38] LABS: BEDSIDE GLUCOSE 133 MG/DL (83-110)
[2018-06-03] MEDS: LIDOCAINE 5% (LIDODERM) PATCH TD (20:50)
[2018-06-03] MEDS: GABAPENTIN 300 MG CAP PO (20:50)
[2018-06-03] MEDS: SENNA 8.6 MG TAB (SENOKOT) PO (20:50)
[2018-06-04 05:33] LABS: BEDSIDE GLUCOSE 139 MG/DL (83-110)
[2018-06-04] MEDS: ACETAMINOPHEN 500 MG TAB PO (05:35)
[2018-06-04] MEDS: LEVOTHYROXINE 112MCG TABLET (0.112MG) PO (05:35)
[2018-06-04] MEDS: MOM 30ML SUSPENSION UDC PO (05:40)
[2018-06-04] MEDS: ADVAIR HFA 230/21MCG INHALER INH (07:26)
[2018-06-04] MEDS: TIOTROPIUM INHALER/CAPSULE (SPIRIVA) INH (07:26)
[2018-06-04] MEDS: CETIRIZINE (ZyrTEC) 10 MG TAB PO (09:04)
[2018-06-04] MEDS: ASPIRIN 81 MG ENTERIC TAB PO (09:04)
[2018-06-04] MEDS: FLUoxetine 20 MG CAP PO (09:04)
[2018-06-04] MEDS: DOCUSATE SODIUM 100 MG CAP PO (09:04)
[2018-06-04] MEDS: RAMIPRIL 5 MG CAP PO (09:05)
[2018-06-04] MEDS: BISOPROLOL FUMARATE 10 MG TAB PO (09:05)
[2018-06-04] MEDS: VITAMIN D 1,000 INTERNATIONAL UNITS TABLET PO (09:05)
[2018-06-04] MEDS: PANTOPRAZOLE 40MG TAB (PROTONIX) PO (09:05)
[2018-06-04] MEDS: RANOLAZINE 500 MG ER TAB PO (09:06)
[2018-06-04] MEDS: ISOSORBIDE MON. (IMDUR) 30 MG XR TAB PO (09:06)
[2018-06-04] MEDS: FLUTICASONE PROP 0.05% NASAL SPRAY 16 GM (FLONASE) NARES (09:07)
[2018-06-04] MEDS: **NOTE PATIENT COMMENT** MISC XX (09:07)
== END 2018-06-04 13:25 | disposition home or self-care (01) | DRG 560 ==
LOC: M PM&R 11:30
PROVIDERS: Physical Medicine & Rehabilitation
DX: Z47.1 Aftercare following joint replacement surgery (principal); Z68.42 Body mass index [BMI] 45.0-49.9, adult; R53.81 Other malaise; J44.9 Chronic obstructive pulmonary disease, unspecified; I11.9 Hypertensive heart disease without heart failure; E11.9 Type 2 diabetes mellitus without complications; M54.5 Low back pain; R07.89 Other chest pain; I25.10 Atherosclerotic heart disease of native coronary artery without angina pectoris; I48.91 Unspecified atrial fibrillation; K21.9 Gastro-esophageal reflux disease without esophagitis; R33.9 Retention of urine, unspecified; E03.9 Hypothyroidism, unspecified; K59.00 Constipation, unspecified; I25.2 Old myocardial infarction; E66.01 Morbid (severe) obesity due to excess calories; J30.9 Allergic rhinitis, unspecified; Z95.5 Presence of coronary angioplasty implant and graft; Z90.49 Acquired absence of other specified parts of digestive tract; Z79.01 Long term (current) use of anticoagulants; Z79.84 Long term (current) use of oral hypoglycemic drugs; Z79.899 Other long term (current) drug therapy; Z88.2 Allergy status to sulfonamides; Z88.6 Allergy status to analgesic agent; Z88.8 Allergy status to other drugs, medicaments and biological substances; Z96.652 Presence of left artificial knee joint

== ENCOUNTER → 2018-07-14 | Outpatient (REF) | payer MEDICARE, BC ==
[~2018-07-14] MED LIST changes: +ACET-683 PO; +ADVA230A PO; +ASPI81TA85 PO; +ASPI81TAEC PO; +BENZ-18 PO; +BISO10TA PO; +BISO5TAB5 PO; +CETI10TA PO; +COLA100C5 PO; +FERRO SEQUELS PO; +FLUO40CA PO; +FLUTISP; +FOLI1TAB11 PO; +GABA-843 PO; +ISOS30TA4 PO; +LEVO112T25 PO; -LIDOCAINE 2% INJ 100 MG/5 ML SDV (FOR ANES.) As Ordered; +METF750T PO; +METRCRM EXT; -MIDAZOLAM INJ 2 MG/2 ML VIAL (J2250) As Ordered; +NITR0.1S TL; -ONDANSETRON 4MG/2ML VIAL (J2405) As Ordered; +PANT40TA3 PO; +PRAL1INJ SUBQ; -PROPOFOL 200 MG/20 ML VIAL As Ordered; +RAMI1CAP24 PO; +RAMI1CAP26 PO; +RANE1000 PO; +SPIR1CAP PO; +TYLE650T35 PO; +VENTAER IN; +VITA100067 PO; +VITA500055 PO; +XARE10TA PO; +XARE20TA PO; -fentaNYL 100 MCG/2 ML INJECTION (J3010) As Ordered
[2018-07-14 18:37] LABS: APPEARANCE, URINE CLOUDY (CLEAR); BACTERIA, URINE AUTO 3+ (NEGATIVE); BILIRUBIN, URINE AUTO NEGATIVE (NEGATIVE); BLOOD, URINE BLOOD NEGATIVE (NEGATIVE); COLOR, URINE AMBER (YELLOW); GLUCOSE, URINE (UA) AUTO NEGATIVE (NEGATIVE); KETONE, URINE AUTO NEGATIVE (NEGATIVE); LEUKOCYTE ESTERASE, URINE AUTO 3+ (NEGATIVE); MUCUS, URINE SMALL (NEGATIVE); NITRITE, URINE AUTO POSITIVE (NEGATIVE); PROTEIN, URINE AUTO 1+ mg/dL (NEGATIVE); RBC, URINE AUTO 2 /HPF (0-3); SPECIFIC GRAVITY URINE AUTO 1.012 (1.002-1.035); SQUAMOUS EPITHELIAL CELL UR AU 2 /HPF (0-6); WBC, URINE AUTO TNTC /HPF (0-3)
== END ==
LOC: M LAB REF 16:33
PROVIDERS: ATTEND Obstetrics & Gynecology
DX: N39.42 Incontinence without sensory awareness (principal)

== ENCOUNTER → 2018-08-23 | Outpatient (REF) | payer MEDICARE, BC ==
[2018-08-23 18:16] LABS: APPEARANCE, URINE HAZY (CLEAR); BACTERIA, URINE AUTO 1+ (NEGATIVE); BILIRUBIN, URINE AUTO NEGATIVE (NEGATIVE); BLOOD, URINE BLOOD NEGATIVE (NEGATIVE); COLOR, URINE YELLOW (YELLOW); GLUCOSE, URINE (UA) AUTO NEGATIVE (NEGATIVE); KETONE, URINE AUTO NEGATIVE (NEGATIVE); LEUKOCYTE ESTERASE, URINE AUTO 3+ (NEGATIVE); MUCUS, URINE SMALL (NEGATIVE); NITRITE, URINE AUTO POSITIVE (NEGATIVE); PROTEIN, URINE AUTO 1+ mg/dL (NEGATIVE); RBC, URINE AUTO 3 /HPF (0-3); SPECIFIC GRAVITY URINE AUTO 1.011 (1.002-1.035); SQUAMOUS EPITHELIAL CELL UR AU 1 /HPF (0-6); WBC, URINE AUTO 51 /HPF (0-3)
== END ==
LOC: M LAB REF 16:42
PROVIDERS: ATTEND Obstetrics & Gynecology
DX: N30.00 Acute cystitis without hematuria (principal); Z87.440 Personal history of urinary (tract) infections

== ENCOUNTER 2018-09-10 19:45 | Emergency (ER) | payer MEDICARE, BC ==
[~2018-09-10] VITALS: Ht 165.1 cm; Wt 127.3 kg
[2018-09-10] MEDS ORDERED: NITR-67 (20:01)
[2018-09-10] MEDS ORDERED: FLEET OIL RETENTION ENEMA PR PRN (22:30)
[2018-09-10] MEDS ORDERED: GOLYTELY SOLN 4000 ML BTL PO ONE (22:30)
[2018-09-10] MEDS ORDERED: MIRA3350 PO (23:35)
[2018-09-10 23:44] VITALS: BP 147/91
--- NOTE | 2018-09-11 11:21 | REP ---
KUB ABDOMEN AND PELVIS: Four KUB films of the abdomen and pelvis performed. There is moderate fecal material scattered throughout the colon. There is no radiographic evidence of small bowel obstruction. Metallic device is seen in the right abdomen with a wire extending into the right pelvis. Phleboliths are seen in the pelvis. There are degenerative changes of the spine. IMPRESSION: Moderate fecal retention without radiographic evidence of small bowel obstruction. Electronically Signed by Regan Rangel MD 09/11/2018 06:57 P
== END 2018-09-10 23:56 | disposition home or self-care (01) ==
LOC: M ED 19:45
DX: K59.00 Constipation, unspecified (principal); I10 Essential (primary) hypertension; Z79.82 Long term (current) use of aspirin; Z79.899 Other long term (current) drug therapy; Z88.2 Allergy status to sulfonamides; Z88.6 Allergy status to analgesic agent; Z88.8 Allergy status to other drugs, medicaments and biological substances